=== PATIENT | female | born 1980 | race Caucasian/White ===

== ENCOUNTER 2016-12-08 06:30 | Emergency (ER) | payer BC ==
[~2016-12-08] VITALS: Ht 170.2 cm; Wt 61.6 kg
[~2016-12-08 06:30] MED LIST: METH750T2 PO; MOBI15TA PO; NAPR220T95 PO; TRAM50 PO; TRAZ50TA4 PO
[2016-12-08 06:38] VITALS: BP 102/72; PULSE 101; RESP 16; TEMP 98.6; O2SAT 99
--- NOTE | 2016-12-08 06:59 | PD ---
HPI Chief Complaint: ENT Complaint Time Seen by Provider: 06:54 Travel History International Travel<30 days: No Contact w/Intl Traveler<30days: No Traveled to known affect area: No History of Present Illness HPI 36-year-old female presents to the emergency department for complaint of progressively worsening sore throat 3 days. No known fever or chills. Patient states anterior cervical chain lymph nodes are tender. Patient states she has taken ibuprofen but this is not providing any relief. Patient also tried Vandana-Seymour cold did not provide relief. Patient's had no stridor or hoarseness. Patient is very fearful that she might have strep throat. No reported cough congestion chest pain shortness of breath nausea vomiting abdominal symptoms or urinary tract symptoms. Patient reports that she is otherwise in good health. Takes no prescription medications on a regular basis. Does admit to frequent ibuprofen use. Patient cannot identify alleviating factors but swallowing seems to worsen her symptoms. 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 reviewed Arthritis: Yes Asthma: No Autoimmune Disease: No Blood Disorders: No Anxiety: No Depression: No Heart Rhythm Problems: No Cancer: No Cardiovascular Problems: No High Cholesterol: No Chemotherapy: No Chest Pain: No Congestive Heart Failure: No COPD: No Cerebrovascular Accident: No Diabetes: No Diminished Hearing: No Endocrine: No GERD: No Glaucoma: No Genitourinary: No Headaches: No Hepatitis: No Hiatal Hernia: No Hypertension: No Kidney Stones: Yes Musculoskeletal: Yes Neurologic: No Psychiatric: No Reproductive: Yes (severe menstrual cramps) Respiratory: No Immunizations Current: No Migraines: Yes Myocardial Infarction: No Radiation Therapy: No Renal Failure: No Seizures: Yes Sickle Cell Disease: No Sleep Apnea: No Thyroid Disease: No Ulcer: No Tetanus Vaccination: < 5 Years Influenza Vaccination: No PNEUMOCCOCAL Vaccine (Year): 3 ?: Not LMP: 11/23/16 : 2 Para: 1 Miscarriage: 1 : 0 Past Surgical History Abdominal Surgery: No AICD: No Appendectomy: No Cardiac Surgery: No Cholecystectomy: No Ear Surgery: No Endocrine Surgery: No Eye Surgery: No Genitourinary Surgery: No Gynecologic Surgery: No Joint Replacement: No Neurologic Surgery: No Oral Surgery: No Pacemaker: No Thoracic Surgery: No Social History Alcohol Use: Yes (SOCIALLY) Tobacco Use: Yes Substance Use: No Allergies-Medications (Allergen,Severity, Reaction): Coded Allergies: No Known Allergies (Unverified , 07/29/16) Reported Meds & Prescriptions Reported Meds & Active Scripts Active Ultram (Tramadol HCl) 50 Mg Tab 1 Tab PO Q6HR FOR PAIN Robaxin (Methocarbamol) 750 Mg Tab 750 Mg PO QID Mobic (Meloxicam) 15 Mg Tab 15 Mg PO DAILY Reported Aleve (Naproxen Sodium) 220 Mg Tab 220 Mg PO BID Trazodone Hcl (Trazodone HCl) 50 Mg Tab 25 Mg PO HS Narrative Medication As needed ibuprofen Review of Systems Except as stated in HPI: all other systems reviewed are Neg General / Constitutional: No: Fever, Chills HENT: Positive: Sore Throat, Congestion, No: Neck Stiffness, Neck Pain Cardiovascular: No: Chest Pain or Discomfort Respiratory: No: Shortness of Breath Gastrointestinal: No: Abdominal Pain Genitourinary: No: Flank Pain Musculoskeletal: No: Myalgias, Arthralgias Skin: No Rash Neurologic: No: Weakness Psychiatric: Positive: Anxiety Hematologic/Lymphatic: Positive: Lymph Node Enlargement Physical Exam Narrative GENERAL: Well-developed well-nourished female in no acute distress no respiratory distress SKIN: Warm and dry. HEAD: Normocephalic. EYES: No scleral icterus. No injection or drainage. ENT: Mucous membranes moist airway is patent posterior pharynx mild erythema without exudate of change or edema no lip tongue or mucosal edema/angioedema NECK: Supple, trachea midline. No JVD or lymphadenopathy. No meningismus no nuchal rigidity. CARDIOVASCULAR: Regular rate and rhythm without murmurs, gallops, or rubs. RESPIRATORY: Breath sounds equal bilaterally. No accessory muscle use. GASTROINTESTINAL: Abdomen soft, non-tender, nondistended. MUSCULOSKELETAL: No cyanosis, or edema. BACK: Nontender without obvious deformity. No CVA tenderness. Data Data Last Documented VS Vital Signs Date Time Temp Pulse Resp B/P Pulse Ox O2 Delivery O2 Flow Rate FiO2 12/08/16 06:38 98.6 101 16 102/72 99 Orders Group A Rapid Strep Screen (12/08/16 06:54) MDM Medical Decision Making Medical Screen Exam Complete: Yes Emergency Medical Condition: Yes Medical Record Reviewed: Yes Differential Diagnosis Strep pharyngitis, viral syndrome, no findings for peritonsillar abscess, to consider retropharyngeal abscess Narrative Course Patient very concerned that she may have strep throat therefore rapid strep antigen and specimen collected and sent for resulting; patient offered acetaminophen. Patient has been taking ibuprofen. Diagnosis Primary Impression: Acute pharyngitis Qualified Code: J02.9 - Acute pharyngitis, unspecified etiology Referrals: Primary Care Physician call for appointment Patient Instructions: General Instructions Departure Forms: Tests/Procedures, Work Release Special Instructions: no work x 1 day Additional Instructions: Increase fluid hydration Take medications as prescribed Continue to use ibuprofen per package instructions as needed for fever 100.4F or greater or for pain associated inflammation Follow-up with primary care provider No work times one day Med/Other Pt SpecificInfo: Prescription(s) given Scripts Hydrocodone-Acetaminophen (Lortab)5-325 Mg Tab1 Tab PO Q6H PRN (PAIN) #7 TAB Ref 0 Prov:Ivanna Horner MD 12/08/16 Amoxicillin 500 Mg [id number] Mg PO TID 10 Days Ref 0 Prov:Ivanna Horner MD 12/08/16 Ivanna Horner MD Dec 08, 2016 06:59
[2016-12-08] MEDS ORDERED: AMOX500T PO (07:14)
[2016-12-08] MEDS ORDERED: HYDR-3533 PO (07:14)
== END 2016-12-08 07:39 | disposition home or self-care (01) ==
LOC: PHED 06:30
DX: J02.9 Acute pharyngitis, unspecified (principal); M19.90 Unspecified osteoarthritis, unspecified site; Z87.442 Personal history of urinary calculi; Z72.0 Tobacco use
CPT/HCPCS: 87081; 87880; 99283

== ENCOUNTER 2017-01-22 09:41 | Emergency (ER) | payer BC ==
[~2017-01-22 09:41] MED LIST changes: +AMOX500T PO; +HYDR-3533 PO
[2017-01-22 09:44] VITALS: BP 99/67; PULSE 73; RESP 16; TEMP 99.1; O2SAT 98
[2017-01-22] MEDS ORDERED: SODIUM CHLOR 0.9% 1000 ML INJ 1,000 ML IV ONE (10:03)
[2017-01-22] MEDS ORDERED: diphenhydrAMINE HCL 50 MG/ML VIAL IVP ONE (10:15)
[2017-01-22] MEDS ORDERED: PROCHLORPERAZINE INJ 10 MG/2 ML VIAL IVP ONE (10:15)
[2017-01-22] MEDS ORDERED: SODIUM CHLORIDE 0.9% FLUSH 10 ML FLUSH IVF PRN (10:15)
[2017-01-22] MEDS ORDERED: ACETAMINOPHEN 325 MG TAB PO ONE (10:15)
[2017-01-22 10:20] VITALS: O2SAT 99
[2017-01-22] MEDS ORDERED: PROM25TA5 PO (11:16)
--- NOTE | 2017-01-22 11:17 | PD ---
HPI Chief Complaint: Headache Time Seen by Provider: 09:55 Travel History International Travel<30 days: No Contact w/Intl Traveler<30days: No Traveled to known affect area: No History of Present Illness HPI 36-year-old female arrives to the ER complaining of headache overlying the right forehead for about 2 days. The onset was gradual. She has a history of migraines. In the ER the pain is 6/10. She has been vomiting as well. During the episodes of vomiting the pain to be 10 over 10. She has a history of migraines. Yesterday while at work the severity gradually worsened and she returned home. At home she tried Excedrin which didn't help. She was also vomiting at home. She's had no fever. She complains of a vague change in visual perception of the right eye as if there is wax paper in front of it at times and other times the right eye vision appears normal. This is only been present for today/few hours. Photophobia present. No neck pain or stiffness. She quit smoking several weeks ago and used her last nicotine patch one week prior. PFSH Past Medical History Arthritis: Yes Asthma: No Autoimmune Disease: No Blood Disorders: No Anxiety: No Depression: No Heart Rhythm Problems: No Cancer: No Cardiovascular Problems: No High Cholesterol: No Chemotherapy: No Chest Pain: No Congestive Heart Failure: No COPD: No Cerebrovascular Accident: No Diabetes: No Diminished Hearing: No Endocrine: No GERD: No Glaucoma: No Genitourinary: No Headaches: No Hepatitis: No Hiatal Hernia: No Hypertension: No Kidney Stones: Yes Musculoskeletal: Yes Neurologic: No Psychiatric: No Reproductive: Yes (severe menstrual cramps) Respiratory: No Immunizations Current: No Migraines: Yes Myocardial Infarction: No Radiation Therapy: No Renal Failure: No Seizures: Yes Sickle Cell Disease: No Sleep Apnea: No Thyroid Disease: No Ulcer: No Influenza Vaccination: No PNEUMOCCOCAL Vaccine (Year): 3 ?: Not LMP: 03/14/17 : 2 Para: 1 Miscarriage: 1 : 0 Past Surgical History Abdominal Surgery: No AICD: No Appendectomy: No Cardiac Surgery: No Cholecystectomy: No Ear Surgery: No Endocrine Surgery: No Eye Surgery: No Genitourinary Surgery: No Gynecologic Surgery: No Joint Replacement: No Neurologic Surgery: No Oral Surgery: No Pacemaker: No Thoracic Surgery: No Social History Alcohol Use: Yes (rarely) Tobacco Use: No (quit) Substance Use: No Allergies-Medications (Allergen,Severity, Reaction): Coded Allergies: No Known Allergies (Unverified , 07/29/16) Reported Meds & Prescriptions Reported Meds & Active Scripts Active Phenergan (Promethazine HCl) 25 Mg Tab 25 Mg PO Q6H PRN Review of Systems Except as stated in HPI: all other systems reviewed are Neg General / Constitutional: No: Fever Physical Exam Narrative GENERAL: 36 -year-old female pleasant moderate distress SKIN: Focused skin assessment warm/dry. HEAD: Atraumatic. Normocephalic. EYES: Pupils equal and round. No scleral icterus. No injection or drainage. ENT: No nasal bleeding or discharge. Mucous membranes pink and moist. NECK: Trachea midline. No JVD. CARDIOVASCULAR: Regular rate and rhythm. No murmur appreciated. RESPIRATORY: No accessory muscle use. Clear to auscultation. Breath sounds equal bilaterally. GASTROINTESTINAL: Abdomen soft, non-tender, nondistended. Hepatic and splenic margins not palpable. MUSCULOSKELETAL: No obvious deformities. No clubbing. No cyanosis. No edema. NEUROLOGICAL: Awake and alert. No obvious cranial nerve deficits. Motor grossly within normal limits. Normal speech. PSYCHIATRIC: Appropriate mood and affect; insight and judgment normal. Data Data Last Documented VS Vital Signs Date Time Temp Pulse Resp B/P Pulse Ox O2 Delivery O2 Flow Rate FiO2 01/22/17 10:20 99 Room Air 01/22/17 09:58 16 01/22/17 09:44 99.1 73 99/67 Orders Ecg Monitoring (01/22/17 10:03) Iv Access Insert/Monitor (01/22/17 10:03) Oximetry (01/22/17 10:03) Sodium Chloride 0.9% Flush (Ns Flush) (01/22/17 10:15) Acetaminophen (Tylenol) (01/22/17 10:15) Prochlorperazine Inj (Compazine Inj) (01/22/17 10:15) Diphenhydramine Inj (Benadryl Inj) (01/22/17 10:15) Sodium Chlor 0.9% 1000 Ml Inj (Ns 1000 M (01/22/17 10:03) MDM Medical Decision Making Medical Screen Exam Complete: Yes Emergency Medical Condition: Yes Medical Record Reviewed: Yes Differential Diagnosis Migraine, SAH, thrombotic intracranial disease, aneurysm, meningitis, complex migraine, ocular emergency Narrative Course Abortive therapy given. Reassessment at 1122AM: Pt reports resolution of pain and nausea. She's had no visual complaint or change since arrival. She requests discharge home. She's safe for discharge. Diagnosis Primary Impression: Headache Qualified Code: R51 - Nonintractable episodic headache, unspecified headache type Additional Impression: Visual changes Referrals: DR RODRIGUES 2 days Additional Instructions: You have a choice when it comes to health care, and we are glad that you chose [facility]. Hopefully, we have met your expectations on today's visit. You are welcome to return to [facility] at any time, as we are committed to meeting the health care needs of our community. Med/Other Pt SpecificInfo: Prescription(s) given Scripts Promethazine (Phenergan)25 Mg Tab25 Mg PO Q6H PRN (Nausea/Vomiting) #10 TAB Ref 0 Prov:Mc Tucker MD 01/22/17 Disposition: DISCHARGE HOME Condition: Stable Mc Tucker MD Jan 22, 2017 11:17
[2017-01-22 11:25] VITALS: RESP 16
[2017-01-22 11:37] VITALS: BP 110/80
== END 2017-01-22 11:38 | disposition home or self-care (01) ==
LOC: PHED 09:41
DX: R51 Headache (principal); R11.2 Nausea with vomiting, unspecified; M19.90 Unspecified osteoarthritis, unspecified site; Z87.891 Personal history of nicotine dependence
CPT/HCPCS: 96361; 96374; 96375; 99283; J0780; J1200; J7030

== ENCOUNTER 2017-03-03 07:13 | Emergency (ER) | payer BC ==
[~2017-03-03] VITALS: Ht 170.2 cm; Wt 65.2 kg
[~2017-03-03 07:13] MED LIST changes: -AMOX500T PO; -HYDR-3533 PO; -METH750T2 PO; -MOBI15TA PO; -NAPR220T95 PO; +PROM25TA5 PO; -TRAM50 PO; -TRAZ50TA4 PO
[2017-03-03 07:15] VITALS: BP 110/64; PULSE 80; RESP 16; TEMP 97.8; O2SAT 100
--- NOTE | 2017-03-03 07:42 | PD ---
HPI Chief Complaint: Injury Time Seen by Provider: 07:34 Travel History International Travel<30 days: No Contact w/Intl Traveler<30days: No Traveled to known affect area: No History of Present Illness HPI 36yo F with no PMH presents to the ED with c/o left shoulder pain since yesterday. Pt woke up with the pain and states pain is worst with movement. Pain is more left scapula region. Denies any trauma, fever, redness, swelling, chest pain, sob, n/v, abdominal pain, focal weakness or numbness. PFSH Past Medical History Hx Anticoagulant Therapy: No Arthritis: Yes Asthma: No Autoimmune Disease: No Blood Disorders: No Anxiety: No Depression: No Heart Rhythm Problems: No Cancer: No Cardiovascular Problems: No High Cholesterol: No Chemotherapy: No Chest Pain: No Congestive Heart Failure: No COPD: No Cerebrovascular Accident: No Diabetes: No Diminished Hearing: No Endocrine: No GERD: No Glaucoma: No Genitourinary: No Headaches: No Hepatitis: No Hiatal Hernia: No Hypertension: No Kidney Stones: Yes Musculoskeletal: Yes Neurologic: No Psychiatric: No Reproductive: Yes (severe menstrual cramps) Respiratory: No Immunizations Current: No Migraines: Yes Myocardial Infarction: No Radiation Therapy: No Renal Failure: No Seizures: Yes Sickle Cell Disease: No Sleep Apnea: No Thyroid Disease: No Ulcer: No Tetanus Vaccination: < 5 Years Influenza Vaccination: No PNEUMOCCOCAL Vaccine (Year): 3 ?: Not : 2 Para: 1 Miscarriage: 1 : 0 Past Surgical History Abdominal Surgery: No AICD: No Appendectomy: No Cardiac Surgery: No Cholecystectomy: No Ear Surgery: No Endocrine Surgery: No Eye Surgery: No Genitourinary Surgery: No Gynecologic Surgery: No Joint Replacement: No Neurologic Surgery: No Oral Surgery: No Pacemaker: No Thoracic Surgery: No Social History Alcohol Use: Yes (rarely) Tobacco Use: No (quit) Substance Use: No Allergies-Medications (Allergen,Severity, Reaction): Coded Allergies: No Known Allergies (Unverified , 03/03/17) Reported Meds & Prescriptions Reported Meds & Active Scripts Active No Active Prescriptions or Reported Medications Review of Systems Except as stated in HPI: all other systems reviewed are Neg Physical Exam Narrative GENERAL: 36yo F in mild distress. SKIN: Focused skin assessment warm/dry. HEAD: Atraumatic. Normocephalic. CARDIOVASCULAR: Regular rate and rhythm. No murmur appreciated. RESPIRATORY: No accessory muscle use. Clear to auscultation. Breath sounds equal bilaterally. GASTROINTESTINAL: Abdomen soft, non-tender, nondistended. MUSCULOSKELETAL: Left shoulder: +TTP medial and superior left scapula. No focal tenderness, redness to glenohumeral joint. Deltoid sensation intact. Distal pulses intact. NEUROLOGICAL: Awake and alert. No obvious cranial nerve deficits. Motor grossly within normal limits. Normal speech. PSYCHIATRIC: Appropriate mood and affect; insight and judgment normal. Data Data Last Documented VS Vital Signs Date Time Temp Pulse Resp B/P Pulse Ox O2 Delivery O2 Flow Rate FiO2 03/03/17 07:15 97.8 80 16 110/64 100 Orders Shoulder, Limited(2vws) (03/03/17 ) Diazepam (Valium) (03/03/17 07:45) Ibuprofen (Motrin) (03/03/17 07:45) MDM Medical Decision Making Medical Screen Exam Complete: Yes Emergency Medical Condition: Yes Differential Diagnosis Musculoskeletal pain vs. fracture vs. tendinitis Narrative Course 36yo F with left shoulder pain, not traumatic. Xray left shoulder showed no acute fracture. Valium and ibuprofen given. Pt reevaluated at bedside and pain has improved. Return precautions given. Diagnosis Primary Impression: Musculoskeletal pain Patient Instructions: General Instructions Departure Forms: Tests/Procedures Additional Instructions: Please follow up with your PMD in 3-7 days. Return to the ED if symptoms worsen. Med/Other Pt SpecificInfo: Prescription(s) given Scripts Ibuprofen 600 Mg [id number] Mg PO Q8HR PRN (PAIN) #20 TAB Ref 0 Prov:PlasenciaMarisol DO 03/03/17 Disposition: 01 DISCHARGE HOME Condition: Stable Marisol Plasencia DO March 03, 2017 07:42
[2017-03-03] MEDS ORDERED: IBUPROFEN 600 MG TAB PO ONE (07:45)
[2017-03-03] MEDS ORDERED: DIAZEPAM 5 MG TAB PO ONE (07:45)
--- NOTE | 2017-03-03 08:01 | RADHPO ---
EXAM DATE/TIME: 03/03/2017 07:45 [facility] COMPARISON: SHOULDER LEFT LTD (2VWS), July 29, 2016, 8:51. INDICATIONS : Left shoulder pain with limited ROM with no known injury MEDICAL HISTORY : None. SURGICAL HISTORY : None. ENCOUNTER: Initial ACUITY: 2 days PAIN SCORE: 9/10 LOCATION: Left Shoulder FINDINGS: Two view examination of the left shoulder demonstrates no evidence of fracture or dislocation. The g lenohumeral and acromioclavicular joints are maintained. Bony mineralization is normal. CONCLUSION: No acute fracture. Anuj Javier MD on March 03, 2017 at 7:58 Board Certified Radiologist. This report was verified electronically.
[2017-03-03] MEDS ORDERED: IBUP-232 PO (09:48)
== END 2017-03-03 10:02 | disposition home or self-care (01) ==
LOC: PHED 07:13
DX: M25.512 Pain in left shoulder (principal); Z87.39 Personal history of other diseases of the musculoskeletal system and connective tissue; Z87.442 Personal history of urinary calculi; Z87.42 Personal history of other diseases of the female genital tract; Z86.69 Personal history of other diseases of the nervous system and sense organs
CPT/HCPCS: 73030; 99283

== ENCOUNTER 2017-07-30 06:48 | Emergency (ER) | payer BC ==
[~2017-07-30] VITALS: Ht 170.2 cm; Wt 66.3 kg
[~2017-07-30 06:48] MED LIST changes: +IBUP-232 PO; -PROM25TA5 PO
[2017-07-30 06:50] VITALS: BP 115/66; PULSE 81; RESP 14; TEMP 98.3; O2SAT 100
[2017-07-30] MEDS ORDERED: AUGM875T3 PO (07:05)
--- NOTE | 2017-07-30 07:06 | PD ---
HPI Chief Complaint: ENT Complaint Time Seen by Provider: 07:04 Travel History International Travel<30 days: No Contact w/Intl Traveler<30days: No Traveled to known affect area: No History of Present Illness HPI Patient is a 37-year-old female who presents to emergency room with complaints of sore throat and swollen glands for the past day. Patient with no fevers or chills, denies any nausea or vomiting. Patient denies any sick contacts. Patient denies any cough or congestion, patient with no other complaints. PFSH Past Medical History Hx Anticoagulant Therapy: No Anemia: No Arthritis: Yes Asthma: No Autoimmune Disease: No Blood Disorders: No Anxiety: No Depression: No Heart Rhythm Problems: No Cancer: No Cardiovascular Problems: No High Cholesterol: No Chemotherapy: No Chest Pain: No Congestive Heart Failure: No COPD: No Cerebrovascular Accident: No Diabetes: No Diminished Hearing: No Endocrine: No Gastrointestinal Disorders: No GERD: No Glaucoma: No Genitourinary: No Headaches: No Hepatitis: No Hiatal Hernia: No Hypertension: No Kidney Stones: Yes Musculoskeletal: Yes Neurologic: No Psychiatric: No Reproductive: Yes (severe menstrual cramps) Respiratory: No Immunizations Current: No Migraines: Yes Myocardial Infarction: No Radiation Therapy: No Renal Failure: No Seizures: Yes Sickle Cell Disease: No Sleep Apnea: No Thyroid Disease: No Ulcer: No PNEUMOCCOCAL Vaccine (Year): 3 ?: Not LMP: 07/22/17 : 2 Para: 1 Miscarriage: 1 : 0 Ovarian Cysts: No Past Surgical History Abdominal Surgery: No AICD: No Appendectomy: No Cardiac Surgery: No Cholecystectomy: No Coronary Artery Bypass Graft: No Ear Surgery: No Endocrine Surgery: No Eye Surgery: No Genitourinary Surgery: No Gynecologic Surgery: No Insulin Pump: No Joint Replacement: No Neurologic Surgery: No Oral Surgery: No Pacemaker: No Thoracic Surgery: No Other Surgery: No Social History Alcohol Use: Yes (rarely) Tobacco Use: No (quit) Substance Use: No Allergies-Medications (Allergen,Severity, Reaction): Coded Allergies: No Known Allergies (Unverified , 03/03/17) Reported Meds & Prescriptions Reported Meds & Active Scripts Active Augmentin (Amoxicillin-Clavulanate) 875-125 Mg Tab 1 Tab PO BID Review of Systems General / Constitutional: No: Fever, Chills Eyes: No: Visual changes HENT: Positive: Sore Throat, No: Headaches, Congestion, Nosebleed, Neck Stiffness, Neck Pain Cardiovascular: No: Chest Pain or Discomfort Respiratory: No: Shortness of Breath Gastrointestinal: No: Abdominal Pain Genitourinary: No: Dysuria Musculoskeletal: No: Pain Skin: No Rash Neurologic: No: Weakness Psychiatric: No: Depression Endocrine: No: Polydipsia Hematologic/Lymphatic: No: Easy Bruising Physical Exam Narrative GENERAL: Well-nourished, well-developed patient. SKIN: Focused skin assessment warm/dry. HEAD: Normocephalic. EYES: No scleral icterus. No injection or drainage. Throat: posterior pharynx irritated and erythematous NECK: Supple, trachea midline. No JVD or Swollen cervical lymphadenopathy. CARDIOVASCULAR: Regular rate and rhythm without murmurs, gallops, or rubs. RESPIRATORY: Breath sounds equal bilaterally. No accessory muscle use. GASTROINTESTINAL: Abdomen soft, non-tender, nondistended. MUSCULOSKELETAL: No cyanosis, or edema. Data Data Last Documented VS Vital Signs Date Time Temp Pulse Resp B/P (MAP) Pulse Ox O2 Delivery O2 Flow Rate FiO2 07/30/17 06:50 98.3 81 14 115/66 (82) 100 Orders Orders Amoxicil-Clavulanate (Augmentin) (07/30/17 07:15) [facility] Medical Decision Making Medical Screen Exam Complete: Yes Emergency Medical Condition: Yes Medical Record Reviewed: Yes Interpretation(s) Vital Signs Date Time Temp Pulse Resp B/P (MAP) Pulse Ox O2 Delivery O2 Flow Rate FiO2 07/30/17 06:50 98.3 81 14 115/66 (82) 100 Differential Diagnosis Differential includes pharyngitis, viral syndrome Narrative Course Patient presents to emergency room with complaints of one day of sore throat and swollen cervical lymph nodes. She was found to have strep pharyngitis, patient will be started on Augmentin, she will follow up with her primary care doctor and return to the emergency room as needed. Diagnosis Primary Impression: Acute pharyngitis Qualified Codes: J02.9 - Acute pharyngitis, unspecified Patient Instructions: General Instructions Departure Forms: Tests/Procedures, Work Release Enter return to work date: Jul 31, 2017 Additional Instructions: Please take all antibiotics as prescribed Return to ER as needed Please follow up with your primary care doctor Med/Other Pt SpecificInfo: Prescription(s) given Scripts Amoxicillin-Clavulanate (Augmentin) 875-125 Mg Tab 1 TAB PO BID for Infection, #7 TAB 0 Refills Prov: Annabella Bocanegra DO 07/30/17 Disposition: 01 DISCHARGE HOME Condition: Stable Annabella Bocanegra DO Jul 30, 2017 07:06
[2017-07-30] MEDS ORDERED: AMOXICILLIN/CLAVULANATE K 875 MG TAB PO ONE (07:15)
== END 2017-07-30 07:11 | disposition home or self-care (01) ==
LOC: PHED 06:48
DX: J02.9 Acute pharyngitis, unspecified (principal); Z87.891 Personal history of nicotine dependence
CPT/HCPCS: 99283

== ENCOUNTER 2018-03-25 21:25 | Emergency (ER) | payer BC ==
[~2018-03-25] VITALS: Ht 167.6 cm; Wt 66.4 kg
[~2018-03-25 21:25] MED LIST changes: +AUGM875T3 PO; -IBUP-232 PO
[2018-03-25 21:27] VITALS: BP 104/65; PULSE 94; RESP 18; TEMP 97.9; O2SAT 99
[2018-03-25] MEDS ORDERED: diphenhydrAMINE HCL 50 MG/ML VIAL IV PUSH ONE (21:45)
[2018-03-25] MEDS ORDERED: SODIUM CHLOR 0.9% 1000 ML INJ 1,000 ML IV ONE (21:45)
[2018-03-25] MEDS ORDERED: KETOROLAC TROMETHAMINE 30 MG/ML (IVP) VIAL IV PUSH ONE (21:45)
[2018-03-25] MEDS ORDERED: PROCHLORPERAZINE INJ 10 MG/2 ML VIAL IV PUSH ONE (21:45)
[2018-03-25 22:39] VITALS: BP 91/52; PULSE 77; RESP 16; O2SAT 98
[2018-03-25] MEDS ORDERED: RIZA5TAB PO (22:51)
[2018-03-25] MEDS ORDERED: BUTA1CAP PO (22:55)
--- NOTE | 2018-03-25 22:55 | PD ---
HPI Chief Complaint: Headache Time Seen by Provider: 21:32 Travel History International Travel<30 days: No Contact w/Intl Traveler<30days: No Traveled to known affect area: No History of Present Illness HPI Patient is a 37-year-old female who comes in complaining of a headache that started a few hours ago. She has history of migraines and says this is similar , except the pain is in a different location. She says the pain is just over her right eye. She has had some nausea, but no vomiting. She says that the light causes the pain to worsen. She denies fever chills. She denies any head injury. She tried taking her triptan at home without relief of her symptoms. Severity is moderate. PFSH Past Medical History Hx Anticoagulant Therapy: No Anemia: No Arthritis: Yes Asthma: No Autoimmune Disease: No Blood Disorders: No Anxiety: No Depression: No Heart Rhythm Problems: No Cancer: No Cardiovascular Problems: No High Cholesterol: No Chemotherapy: No Chest Pain: No Congestive Heart Failure: No COPD: No Cerebrovascular Accident: No Diabetes: No Diminished Hearing: No Endocrine: No Gastrointestinal Disorders: No GERD: No Glaucoma: No Genitourinary: No Headaches: No Hepatitis: No Hiatal Hernia: No Hypertension: No Kidney Stones: Yes Musculoskeletal: Yes Neurologic: No Psychiatric: No Reproductive: Yes (severe menstrual cramps) Respiratory: No Immunizations Current: No Migraines: Yes Myocardial Infarction: No Radiation Therapy: No Renal Failure: No Seizures: Yes Sickle Cell Disease: No Sleep Apnea: No Thyroid Disease: No Ulcer: No Influenza Vaccination: No PNEUMOCCOCAL Vaccine (Year): 3 ?: Not LMP: 03/16/18 : 2 Para: 1 Miscarriage: 1 : 0 Ovarian Cysts: No Past Surgical History Abdominal Surgery: No AICD: No Appendectomy: No Cardiac Surgery: No Cholecystectomy: No Coronary Artery Bypass Graft: No Ear Surgery: No Endocrine Surgery: No Eye Surgery: No Genitourinary Surgery: No Gynecologic Surgery: No Insulin Pump: No Joint Replacement: No Neurologic Surgery: No Oral Surgery: No Pacemaker: No Thoracic Surgery: No Other Surgery: No Social History Alcohol Use: Yes (rarely) Tobacco Use: Yes (1 pk daily) Substance Use: No Allergies-Medications (Allergen,Severity, Reaction): Coded Allergies: No Known Allergies (Verified Adverse Reaction, Unknown, 03/25/18) Reported Meds & Prescriptions Reported Meds & Active Scripts Active Reported Rizatriptan (Rizatriptan Benzoate) 5 Mg Tab 1 Tab PO DIRECTED Review of Systems General / Constitutional: No: Fever, Chills Eyes: No: Blurred Vision HENT: Positive: Headaches Cardiovascular: No: Chest Pain or Discomfort Respiratory: No: Shortness of Breath Gastrointestinal: Positive: Nausea, No: Vomiting, Abdominal Pain Musculoskeletal: No: Myalgias, Edema Skin: No Rash, No Change in Pigmentation Neurologic: No: Weakness, Dizziness Physical Exam Narrative GENERAL: Awake and alert, no acute distress. SKIN: Focused skin assessment warm/dry. HEAD: Atraumatic. Normocephalic. EYES: Pupils equal and round. No scleral icterus. Extraocular movements intact. ENT: Mucous membranes pink and moist. CARDIOVASCULAR: Regular rate and rhythm. No murmur appreciated. RESPIRATORY: No accessory muscle use. Clear to auscultation. Breath sounds equal bilaterally. MUSCULOSKELETAL: No obvious deformities. No clubbing. No cyanosis. No edema. NEUROLOGICAL: Awake and alert. No obvious cranial nerve deficits. Motor grossly within normal limits. Normal speech. PSYCHIATRIC: Appropriate mood and affect; insight and judgment normal. Data Data Last Documented VS Vital Signs Date Time Temp Pulse Resp B/P (MAP) Pulse Ox O2 Delivery O2 Flow Rate FiO2 03/25/18 22:39 77 16 91/52 (65) 98 Room Air 03/25/18 21:27 97.9 Orders Orders Iv Access Insert/Monitor (03/25/18 21:37) Prochlorperazine Inj (Compazine Inj) (03/25/18 21:45) Diphenhydramine Inj (Benadryl Inj) (03/25/18 21:45) Ketorolac Inj (Toradol Inj) (03/25/18 21:45) Sodium Chlor 0.9% 1000 Ml Inj (Ns 1000 M (03/25/18 21:45) Ed Urine Pregnancytest Poc (03/25/18 21:37) MDM Medical Decision Making Medical Screen Exam Complete: Yes Emergency Medical Condition: Yes Differential Diagnosis Migraine versus tension headache versus dehydration Narrative Course Patient is a 37-year-old female who comes in complaining of a headache that is similar to her migraines. Exam shows no neurologic abnormalities. IV established. Patient given IV fluids, Toradol, Compazine, Benadryl. She reports feeling better. She will be discharged with Fioricet. She is advised follow-up with her doctors. Advised return to the ED as needed for any worsening symptoms. Diagnosis Primary Impression: Headache Qualified Codes: R51 - Headache Patient Instructions: Acute Headache (ED), General Instructions Additional Instructions: Follow-up with your doctor. You can take Fioricet as needed for severe pain, be careful as it may make you drowsy. Return to the ED as needed for any worsening symptoms. Scripts Giyckphvta-Zwbepxnumuaey-Ieyyardd (Fioricet) 50-300-40 Mg Cap 1-2 CAP PO Q6H Y for HEADACHE, #10 CAP 0 Refills Prov: Indigo Mendoza MD 03/25/18 Disposition: 01 DISCHARGE HOME Condition: Stable Indigo Mendoza MD Mar 25, 2018 22:55
== END 2018-03-25 23:04 | disposition home or self-care (01) ==
LOC: PHEFT 21:25
DX: R51 Headache (principal); R11.0 Nausea; F17.200 Nicotine dependence, unspecified, uncomplicated; M19.90 Unspecified osteoarthritis, unspecified site; Z87.442 Personal history of urinary calculi; Z86.69 Personal history of other diseases of the nervous system and sense organs; Z79.899 Other long term (current) drug therapy
CPT/HCPCS: 84703; 96361; 96374; 96375; 99284; J0780; J1200; J1885; J7030